=== PATIENT | male | born 1950 | race Asian ===

== ENCOUNTER 2022-07-18 20:00 | Emergency (ER) | payer OTHER ==
[~2022-07-18] VITALS: Ht 182.9 cm; Wt 59.0 kg
[2022-07-18 20:00] VITALS: BP 126/78; TEMP 97.9
[2022-07-18 20:28] LABS: PLATELET COUNT 189 K/uL (142-355)
[2022-07-18 20:36] LABS: POTASSIUM 2.8 mmol/L (3.6-5.2)
[2022-07-19] MEDS ORDERED: ASPIRIN81 M1 PO (08:41)
[2022-07-19] MEDS ORDERED: BREO ELLIPTA 201 INH INH (08:42)
[2022-07-19] MEDS ORDERED: LIPITOR80 MG PO (08:42)
[2022-07-19] MEDS ORDERED: GNP VITAMIN B PO (08:43)
[2022-07-19] MEDS ORDERED: DONEPEZIL HYDRO10 MG PO (08:43)
[2022-07-19] MEDS ORDERED: FOLI1TAB26 PO (08:43)
[2022-07-19] MEDS ORDERED: FUROSEMIDE40 MG PO (08:44)
[2022-07-19] MEDS ORDERED: MULTIVITAMI1 PO (08:44)
[2022-07-19] MEDS ORDERED: POLYETHYLE17 GM/SCO1 PO (08:45)
[2022-07-19] MEDS ORDERED: POTA20TA4 PO (08:45)
[2022-07-19] MEDS ORDERED: VITAMIN D325 MCG PO (08:46)
[2022-07-19] MEDS ORDERED: ACID CONTROL20 MG PO (08:46)
[2022-07-19] MEDS ORDERED: HYDROXYZINE HYD25 MG PO (08:47)
[2022-07-19] MEDS ORDERED: TRAMADOL HYDROC50 MG PO (08:47)
== END 2022-07-18 21:20 | disposition still patient (30) ==
LOC: ED 20:00 → EDSEX 20:00 → ED 21:20
PROVIDERS: Emergency Medicine
DX: R46.89 Other symptoms and signs involving appearance and behavior (principal); R45.1 Restlessness and agitation; Z11.52 Encounter for screening for COVID-19; Z04.6 Encounter for general psychiatric examination, requested by authority
CPT/HCPCS: 36415; 80053; 85027; 87635; 93005; 99283; U0003